=== PATIENT | female | born 1965 | race Caucasian/White ===

== ENCOUNTER 2016-06-15 20:33 | Emergency (ER) | payer MEDICAID ==
[~2016-06-15] VITALS: Ht 165.1 cm; Wt 61.7 kg
[~2016-06-15 20:33] MED LIST: ACETAMINOPHEN &1 TA1 PO; AMLODIPINE BES2.5 MG PO; APAP/HYDROCODON1 TA9 PO; ARIPIPRAZOLE2 MG PO; B12 INJ.,1000 MCG/M IM; CITALOPRAM HYDR10 MG PO; CLONIDINE HCL0.1 M1 PO; DIAZEPAM10 M1 PO; ESTRACE2 MG PO; ESTRADIOL VALERATE 20 MG/ML IM; FLEXERIL10 MG PO; GABAPENTIN 600600 MG PO; GOOD NEIGHBOR P20 M1 PO; HCTZ/LISINOPRIL1 TA3 PO; HYDROCODONE-APA1 TA2 PO; METOCLOPRAMIDE10 M3 PO; NORCO 325 MG-101 TAB PO; OXYCODONE HYDRO1 TA1 PO; PERCOCET 5/3251 EACH PO; PREDNISONE 20MG20 MG PO; VALACYCLOVIR HCL1 G1 PO
--- NOTE | 2016-06-15 21:11 | Emergency Room Report ---
History of Present Illness Time Seen by [id number] Presenting Problem in Triage Pt arrived:Walked Presenting Problem:PT STATES SHE FELL WHEN TRYING TO CATCH A GRILL AND LANDED ON BACK. 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 N Clinical Suspician of Infection? N Mental Status: 1 - Regular (Normal Baseline) Sepsis Risk:Low Sepsis Risk Have you (or family members/close friends) recently traveled outside the [place]? N If Yes, where/when: Have you had exposure to infectious disease within the past month? N TB? Other? Specify: Source patient, RN notes reviewed, family, old records Exam Limitations no limitations Comment has lower back pain after fall with hx of back pain Cardiac Chest Pain Chest pain indicative of cardiac No Timing/Duration this evening Severity moderate ALLERGIES Coded Allergies: Antihistamines - Alkylamine (06/15/16) ketorolac (From Toradol) (06/15/16) Home Medications Reported Medications Diazepam 10 MG PO BID PRN ANXIETY #60 TAB Amlodipine Besylate 2.5 MG PO DAILY #4 Omeprazole 20 MG PO DAILY #28 Gabapentin (Gabapentin 600MG) 600 MG PO Q8 #120 HYDROCODONE/ACETAMINOPHEN (Hydrocodon-Acetaminophn 10-325) 1 TAB PO QID #120 TAB CLONIDINE HCL (Clonidine 0.1MG) 0.1 MG PO BID #60 METOCLOPRAMIDE HCL (Metoclopramide Hydrochloride) 10 MG PO AC #120 Citalopram Hydrobromide (Citalopram HBr) 10 MG PO DAILY #30 Aripiprazole 2 MG PO DAILY #30 LISINOPRIL/HYDROCHLOROTHIAZIDE (Lisinopril-Hctz 20-12.5 MG Tab) 40 TAB PO BID History Medical History General CAD? No Angina: No CT: No Hypertension? Yes Hyperlipidemia? No CHF? No DVT? No PE? No COPD? Yes Asthma? Yes Anemia? No GERD? No Gastric ulcers? No GI Bleed? No Hernia? No Thyroid Problems? No Hypothyroidism? No CVA? No Seizures? No Diabetes? No Insulin Dependent: No Insulin Pump: No Home FSBS? No Renal Insuffiency? No End Stage Renal Disease? No UTI? No Stones? No BPH? No GB Disease: No Nephritic Syndrome? No Asplenia? No Hepatitis? No Sickle Cell Disease? No Arthritis? Yes Migraines? Yes Cataracts? No Glaucoma? No MRSA? No HIV? No TB? No Anxiety? No Depression? Yes Cancer? No More? 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 Respiratory denies cough, denies shortness of breath, denies wheezing Cardiovascular denies chest pain, denies palpitations, denies syncope Gastrointestinal denies abdominal pain, denies diarrhea, denies vomiting Genitourinary denies: dysuria, frequency, hesitancy. Musculoskeletal see HPI, back pain, denies joint pain, denies joint swelling, denies neck pain Skin denies rash Psychiatric/Neurological denies headache, denies seizure Physical Exam Vital Signs Vital Signs Date Time Temp Pulse Resp B/P Pulse O2 O2 Flow FiO2 Ox Delivery Rate 06/156 18 06/15 2115 71 18 177/92 98 06/15 2036 98.1 82 18 196/131 97 - WBC >12,000 or <4,000 or 10% bands? 2 or more SIRS Criteria Met? B/P:177/ MAP:152 Creatinine >2.0? UA output<0.5ml/kg/hr for 2 hrs? Platelet count >100,000? Lactate >2.0mmol/1? INR >1.2 or PTT > than 60 sec? Evidence of Organ Dysfunction? Provider documented clinical suspician of infection? N Sepsis Criteria Count: 0 Sepsis Risk: Low Sepsis Risk General Appearance no apparent distress Eye Exam - bilateral eye PERRL, bilateral eye EOMI Ear, Nose, Throat normal ENT inspection Neck supple Respiratory Status No: respiratory distress. 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 No Results/Orders Current Medication Orders Sig/Kelly Start time Last Medication Dose Route Stop Time Status Admin Dexamethasone Sodium 8 MG ONCE ONE 06/15 2129 DC 06/15 Phosphate IM 06/15 Hydromorphone HCl 1 MG ONCE ONE 06/15 2129 DC 06/15 IM 06/15 Orphenadrine Citrate 60 MG ONCE ONE 06/15 2129 DC 06/15 IM 06/15 Promethazine HCl 25 MG ONCE ONE 06/15 2129 DC 06/15 IM 06/15 Sodium Chloride 25 ML ONCE ONE 06/15 2129 DC IV 06/15 2143 Dexamethasone Sodium 0 .STK-MED ONE 06/15 2127 DC Phosphate .ROUTE Hydromorphone HCl 0 .STK-MED ONE 06/15 2127 DC .ROUTE Orphenadrine Citrate 0 .STK-MED ONE 06/15 2127 DC .ROUTE Promethazine HCl 0 .STK-MED ONE 06/15 2127 DC .ROUTE Orders Procedure Date/time Status LUMBAR SPINE 5 VIEWS 06/15 2111 Active XRAY/CT/US XRAY/CT/US XRAY L-spine XR interpretation by reviewed by me Xray Results no fracture seen, abnormal Departure Departure Time of Disposition 2229 Disposition DC Home or Self Care(routine) Clinical Impression Primary Impression: Back pain Qualifiers: Back pain location: low back pain Chronicity: chronic Back pain laterality: bilateral Sciatica presence: without sciatica Qualified Code: M54.5 - Low back pain Secondary Impressions: HTN (hypertension) Qualifiers: Hypertension type: unspecified secondary hypertension Qualified Code: I15.9 - Secondary hypertension, unspecified Condition STABLE Referrals Mat Ruelas MD (Family) Patient Instructions DI for Low Back Pain Additional Instructions use meds and see pcp for follow up Discharge Counseling Counseled pt/family regarding diagnosis, test results, medications/RX, follow up needs ED Critical Care Critical Care No at [id number]
[2016-06-15 22:51] VITALS: BP 222/120
--- NOTE | 2016-06-16 07:54 | RADIOLOGY REPORT PS360 ---
LUMBAR SPINE 5 VIEWS COMPARISON: Lumbar spine 02/18/2016 HISTORY: Low back pain after a fall TECHNIQUE: AP lateral and oblique views and spot view lumbosacral junction FINDINGS: There is accentuated lordotic curvature lower lumbar spine. There is an increased lung signal angle measuring 51 degrees. Also a line drawn perpendicular from the body of L3 falls anterior to the sacrum and these are 2. Findings consistent with instability of the lower back. There is no compression fracture. There is mild to space narrowing and anterior osteophytic spurring at L5-S1 level area there is no pars defect. The SI joints are normal. IMPRESSION: Accentuated lumbar lordosis with increased lumbosacral angle, no other significant abnormality noted.
== END 2016-06-15 22:52 | disposition home or self-care (01) ==
LOC: ER 20:33
DX: M54.5 Low back pain (principal); I15.9 Secondary hypertension, unspecified; Z72.0 Tobacco use

== ENCOUNTER 2016-06-22 21:00 | Emergency (ER) | payer MEDICAID ==
[~2016-06-22] VITALS: Ht 165.1 cm; Wt 61.7 kg
--- NOTE | 2016-06-22 22:12 | Emergency Room Report ---
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 N Clinical Suspician of Infection? N Mental Status: 1 - Regular (Normal Baseline) Sepsis Risk:Low Sepsis Risk Have you (or family members/close friends) recently traveled outside the [place]? N If Yes, where/when: Have you had exposure to infectious disease within the past month? N TB? Other? Specify: Source patient, RN notes reviewed, family, old records Exam Limitations no limitations Comment pt with known lumbar disc disease with acute excerbation with no cauda equina sx Cardiac Chest Pain Chest pain indicative of cardiac No Timing/Duration this evening Severity moderate ALLERGIES Coded Allergies: Antihistamines - Alkylamine (06/15/16) ketorolac (From Toradol) (06/15/16) Home Medications Reported Medications Diazepam 10 MG PO BID PRN ANXIETY #60 TAB Amlodipine Besylate 2.5 MG PO DAILY #4 Omeprazole 20 MG PO DAILY #28 Gabapentin (Gabapentin 600MG) 600 MG PO Q8 #120 HYDROCODONE/ACETAMINOPHEN (Hydrocodon-Acetaminophn 10-325) 1 TAB PO QID #120 TAB CLONIDINE HCL (Clonidine 0.1MG) 0.1 MG PO BID #60 METOCLOPRAMIDE HCL (Metoclopramide Hydrochloride) 10 MG PO AC #120 Citalopram Hydrobromide (Citalopram HBr) 10 MG PO DAILY #30 Aripiprazole 2 MG PO DAILY #30 LISINOPRIL/HYDROCHLOROTHIAZIDE (Lisinopril-Hctz 20-12.5 MG Tab) 40 TAB PO BID History Medical History General CAD? No Angina: No AL: No Hypertension? Yes Hyperlipidemia? No CHF? No DVT? No PE? No COPD? Yes Asthma? Yes Anemia? No GERD? No Gastric ulcers? No GI Bleed? No Hernia? No Thyroid Problems? No Hypothyroidism? No CVA? No Seizures? No Diabetes? No Insulin Dependent: No Insulin Pump: No Home FSBS? No Renal Insuffiency? No End Stage Renal Disease? No UTI? No Stones? No BPH? No GB Disease: No Nephritic Syndrome? No Asplenia? No Hepatitis? No Sickle Cell Disease? No Arthritis? Yes Migraines? Yes Cataracts? No Glaucoma? No MRSA? No HIV? No TB? No Anxiety? No Depression? Yes Cancer? No More? 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 Respiratory denies cough, denies shortness of breath, denies wheezing Cardiovascular denies chest pain, denies palpitations, denies syncope Gastrointestinal denies abdominal pain, denies diarrhea, denies vomiting Genitourinary denies: dysuria, frequency, hesitancy, hematuria. Musculoskeletal see HPI, back pain, denies joint pain, denies joint swelling, denies neck pain Skin denies rash Psychiatric/Neurological denies headache, denies seizure Physical Exam Vital Signs Vital Signs Date Time Temp Pulse Resp B/P Pulse O2 O2 Flow FiO2 Ox Delivery Rate 06/22 2242 97.8 80 20 194/117 97 06/22 2222 18 06/22 2207 80 18 165/90 96 06/22 2125 98.7 78 18 147/93 96 - WBC >12,000 or <4,000 or 10% bands? 2 or more SIRS Criteria Met? B/P:165/90 MAP:111 Creatinine >2.0? UA output<0.5ml/kg/hr for 2 hrs? Platelet count >100,000? Lactate >2.0mmol/1? INR >1.2 or PTT > than 60 sec? Evidence of Organ Dysfunction? Provider documented clinical suspician of infection? N Sepsis Criteria Count: 0 Sepsis Risk: Low Sepsis Risk General Appearance no apparent distress Eye Exam - bilateral eye PERRL, bilateral eye EOMI Ear, Nose, Throat normal ENT inspection Neck non-tender Respiratory Status No: respiratory distress. 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 No Results/Orders Current Medication Orders Sig/Kelly Start time Last Medication Dose Route Stop Time Status Admin Promethazine HCl 0 .STK-MED ONE 06/22 2216 DC .ROUTE Hydromorphone HCl 0 .STK-MED ONE 06/22 2215 DC .ROUTE Hydromorphone HCl 1 MG ONCE ONE 06/22 2214 DC 06/22 IM 06/22 Promethazine HCl 25 MG ONCE ONE 06/22 2214 DC IM 06/22 2215 Sodium Chloride 25 ML ONCE ONE 06/22 2214 DC IV 06/22 2228 Departure Departure Time of Disposition 2232 Disposition DC Home or Self Care(routine) Clinical Impression Primary Impression: Lumbar disc disease with radiculopathy Condition STABLE Referrals Suraj DAVIS,Mat Shanks (Family) Patient Instructions DI for Low Back Pain Additional Instructions use meds and se pcp for follow up Discharge Counseling Counseled pt/family regarding diagnosis, medications/RX, follow up needs Prescriptions Current Visit Scripts Prednisone (Prednisone 20MG) 20 MG PO BID #10 TAB ED Critical Care Critical Care No at [id number]
[2016-06-22] MEDS ORDERED: PREDNISONE 20MG20 MG PO (22:58)
[2016-06-22 23:10] VITALS: BP 180/107
== END 2016-06-22 23:14 | disposition home or self-care (01) ==
LOC: ER 21:00
DX: M51.16 Intervertebral disc disorders with radiculopathy, lumbar region (principal); Z72.0 Tobacco use; I10 Essential (primary) hypertension; J44.9 Chronic obstructive pulmonary disease, unspecified

== ENCOUNTER → 2016-07-23 | Outpatient (CLI) | payer MEDICAID ==
[2016-07-23 15:42] LABS: AMPHETAMINES/METAMPHETAMINES NEGATIVE ng/mL (<1000)
== END ==
LOC: LAB 13:55
PROVIDERS: Emergency Medicine
DX: Z79.899 Other long term (current) drug therapy (principal)

== ENCOUNTER → 2016-10-18 | Outpatient (CLI) | payer MEDICAID ==
[2016-10-18 14:54] LABS: AMPHETAMINES/METAMPHETAMINES NEGATIVE ng/mL (<1000)
== END ==
LOC: LAB 13:46
PROVIDERS: Emergency Medicine
DX: Z79.899 Other long term (current) drug therapy (principal)
CPT/HCPCS: G0480

== ENCOUNTER → 2017-03-02 | Outpatient (CLI) | payer MEDICAID ==
[~2017-03-02] MED LIST changes: +DIAZEPAM5 M1 PO
[2017-03-02 18:41] LABS: AMPHETAMINES/METAMPHETAMINES NEGATIVE ng/mL (<1000)
== END ==
LOC: LAB 15:37
PROVIDERS: Emergency Medicine
DX: Z79.899 Other long term (current) drug therapy (principal)

== ENCOUNTER → 2017-04-01 | Outpatient (CLI) | payer MEDICAID ==
[2017-04-01 15:24] LABS: AMPHETAMINES/METAMPHETAMINES NEGATIVE ng/mL (<1000)
== END ==
LOC: LAB 13:41
PROVIDERS: Emergency Medicine
DX: Z79.899 Other long term (current) drug therapy (principal)

== ENCOUNTER → 2017-05-17 | Outpatient (CLI) | payer MEDICAID ==
[2017-05-17 13:35] LABS: AMPHETAMINES/METAMPHETAMINES NEGATIVE ng/mL (<1000)
== END ==
LOC: LAB 12:11
PROVIDERS: Emergency Medicine
DX: Z79.899 Other long term (current) drug therapy (principal)